=== PATIENT | female | born 1995 | race Caucasian/White ===

== ENCOUNTER 2025-05-11 02:20 | Emergency (ER) | payer BC, SELFPAY ==
[2025-05-11 02:24] VITALS: BP 123/78; BMI 19.5
[2025-05-11 02:27] VITALS: BP 123/78
[2025-05-11] MEDS: ZOFRAN 4 MG IV (02:39)
[2025-05-11] MEDS: NSS 1000 IV (02:40)
[2025-05-11 02:50] LABS: Hematocrit 38.0 % (37.0-47.0); Hemoglobin 13.8 g/dL (12.0-16.0); Mean Corp Hgb Conc. 36.3 g/dL (33.0-37.0); Mean Corpuscular Volume 93.8 fL (81.0-99.0); Nucleated Red Blood Cells % 0 %; Platelet Count 210 10^3/uL (130-400); Red Cell Dist. Width 10.9 % (11.5-14.5)
[2025-05-11 02:59] LABS: HCG, Serum Qualitative Screen Negative
[2025-05-11 03:02] VITALS: BP 97/69
[2025-05-11 03:08] LABS: Blood Urea Nitrogen 12 mg/dl (7-17); Calcium 9.4 mg/dl (8.4-10.2); Carbon Dioxide 21 mmol/L (22-30); Chloride 107 mmol/L (98-107); Estimated Creatinine Clearance > 125 ml/min; Glucose 103 mg/dl (70-99); Potassium 3.7 mmol/L (3.5-5.1); Sodium 140 mmol/L (135-145); eGFR > 60.00
[2025-05-11 04:31] VITALS: BP 106/57
--- NOTE | 2025-05-11 05:13 | ED.GENMED ---
History of Present Illness
General
Chief Complaint: Alcohol Problem
Source: patient
Time Seen by Provider: 05/11/25 02:43
Nursing documentation reviewed up to this point in time: agreed with
History of Present Illness
History of Present Illness:
Note:
CHIEF COMPLAINT(S)
Nausea and vomiting
HISTORY OF PRESENT ILLNESS
The patient is a 29-year-old female who was reportedly fine until she went to the bathroom and suddenly experienced uncontrollable vomiting. This occurred while she was out in [place] with friends. The friends report that she did not consume a
large quantity of alcohol as far as they are aware. Following the vomiting, she became noticeably unsteady on her feet and appeared 'wobbly.' There is concern for possible alcohol intoxication. The patient was brought here due to the risk of
vomiting and potential for choking. Upon inquiry, it was noted that there is a plan to monitor her alcohol level. If the level is under 200, she can be considered for discharge. She denies being diabetic or having any significant medical problems.
The patient was provided with medication for nausea recently during the visit.
ADDITIONAL HISTORY OBTAINED FROM SOURCES OTHER THAN THE PATIENT
Information was provided by friends accompanying the patient. They reported the sequence of events, including her sudden onset of vomiting and subsequent unsteadiness.
PHYSICAL EXAM
General: Alert, no acute distress.
Skin: Warm, dry.
Head: Normocephalic, atraumatic.
Neck: Supple, trachea midline.
Eye Ears, nose, mouth and throat: Oral mucosa moist.
Cardiovascular: Normal peripheral perfusion, No edema.
Respiratory: Respirations are non-labored.
Gastrointestinal: Abdomen nondistended
Back: Normal range of motion, Normal alignment.
Musculoskeletal: Normal range of motion, normal strength.
Neurological: Alert and oriented to person, place, time, and situation, No focal neurological deficit observed.
Psychiatric: Cooperative, appropriate mood & affect.
PLAN
1. Monitor the patients alcohol level and observe her until she is coherent and able to handle herself.
2. Consider discharge once her alcohol level is under 200.
3. Continue to provide symptomatic treatment for nausea as needed.
DIFFERENTIAL DIAGNOSIS
The Differential Diagnosis includes, in no particular order and is not limited to:
1. Acute alcohol intoxication
2. Gastroenteritis
3. Vestibular Neuritis
4. Acute Gastroenteritis
5. Food poisoning
6. Viral infection
7. Anxiety-induced nausea
8. Dehydration
9. Reaction to medication or substance
10. Intracranial event such as a migraine or less likely a stroke.
Disposition:
SUMMARY OF ENCOUNTER
The patient, a 29-year-old female, was brought to the emergency department for evaluation following an episode of nausea and vomiting with a possible concern for acute alcohol intoxication. Initial presentation included symptoms of vomiting and
unsteadiness. Alcohol level monitoring was initiated to assess her condition. The patient received symptomatic treatment for nausea and has since sobered up. Currently, she is alert, maintaining appropriately, and handling herself without difficulty.
DISPOSITION
Discharge
ASSESSMENT
The patients symptoms and history suggest acute alcohol intoxication, which has now resolved as she is coherent and stable.
PLAN
1. Discharge the patient home in the care of a responsible friend.
2. Advise the patient to rest and avoid alcohol consumption.
3. Recommend the patient seeks medical attention if symptoms reoccur or worsen.
MEDICATION RECONCILIATION
Ondansetron was provided for nausea treatment during the visit.
MEDICAL DECISION MAKING
-Complexity of Data Reviewed:
Acute alcohol intoxication, Differential Diagnosis:
1. Acute alcohol intoxication
2. Gastroenteritis
3. Vestibular Neuritis
4. Acute Gastroenteritis
5. Food poisoning
6. Viral infection
7. Anxiety-induced nausea
8. Dehydration
9. Reaction to medication or substance
10. Intracranial event such as a migraine or less likely a stroke.
-Data:
Category 2: Clinical information was obtained from an independent historian, specifically the patients friends who reported the sequence of events.
-Risk: Consideration of Admission/Observation: Escalation of care including admission/observation was considered given the complexity and risk of the patients presenting complaint. However, ultimately the patient is deemed safe for outpatient
management with close follow-up. Reasoning: Work-up reassuring, does not reveal any acute life/organ-threatening processes, patients symptoms well controlled upon reevaluation, reexamination is reassuring, vitals are stable, patient agreeable with
discharge, reliable for follow-up.
DIAGNOSIS
Acute alcohol intoxication (ICD-10: F10.129)
Past History
Past History
ED Past Medical History: Psychiatric (Bipolar disorder) and Other (Pyelonephritis); Negative Asthma, HTN, Hypercholesterolemia or NIDDM
ED Past Surgical History: None
Social History
Tobacco: Non-smoker
Alcohol: None
Drug: None
Personal: Single
Living: with family
Employment: Student
Family History
Family History: Other (Noncontributory)
Phy Exam
Physical Exam
Physical Exam:
.
Scores
Withdrawal Assessment of Alcohol
Withdrawal Assessment Completed?: Not applicable
Course
Orders/Labs/Results
Orders:
Orders
05/11/25 02:36
Ondansetron Injectable [Zofran] 4 mg .ROUTE .STK-MED ONE
05/11/25 02:38
Ondansetron Injectable [Zofran] 4 mg IV NOW STA
05/11/25 02:39
0.9% Sodium Chloride 1000 ml [Nss] 1,000 ml IV BOLUS
05/11/25 02:41
Test Result ONCE
05/11/25 02:42
Alcohol Urgent
Basic Metabolic Panel Urgent
Complete Blood Count/With Diff Urgent
HCG, Serum Qualitative Screen Urgent
Abnormal Lab Results
05/11/25
02:42
RBC 4.05 L 10^6/uL
(4.20-5.40)
MCH 34.1 H pg
(27.0-31.0)
RDW 10.9 L %
(11.5-14.5)
Absolute Lymphs (auto) 3.5 H 10^3/uL
(1.2-3.4)
Carbon Dioxide 21 L mmol/L
(22-30)
Creatinine 0.5 L mg/dL
(0.6-1.0)
Glucose 103 H mg/dl
(70-99)
05/11/25 02:42
05/11/25 02:42
Vital Signs
Initial and Last Documented VS:
Initial Vital Signs
Temp Pulse Resp BP Pulse Ox
97.6 F 74 12 123/78 95
05/11/25 02:24 05/11/25 02:24 05/11/25 02:24 05/11/25 02:24 05/11/25 02:24
Last Documented Vital Signs
Temp Pulse Resp BP Pulse Ox
97.6 F 84 24 106/57 98
05/11/25 02:24 05/11/25 04:45 05/11/25 04:45 05/11/25 04:31 05/11/25 05:14
*Pulse Oximetry
SaO2: 98
Oxygen Mode of Delivery: Room air
Patient hypoxic: no
*Critical Care Note
Total Time (30-74mins, 75-104mins- exclusive of procedures): Not Applicable
ED Attending Note
-
Portions of this chart may have been created with voice recognition software.� Occasional wrong word or��sound alike� substitutions may have occurred due to the inherent limitations of voice recognition software.
Discharge Plan
Departure
Patient Disposition: Home (Routine Discharge)
Date of Disposition: 05/11/25
Time of Disposition: 05:13
Patient with high blood pressure during this ER visit?: Yes
Condition: Good
Discharge Problem:
Acute alcohol intoxication
Instructions: Alcohol Use Disorder (DC), BLOOD PRESSURE
Prescriptions:
No Action
No Current Medications
0
Referrals:
Bryan Bingham DO [Family Provider, Family Practice]
Activity Restrictions/Additional Instructions:
Thank You for choosing [facility].
It was a pleasure meeting you and taking part in your care. We hope for your continued healing and wellness.
Please read discharge instructions in their entirety. However, they are for general education and may not describe your exact diagnosis at discharge. Information on your ER visit and medical conditions were discussed with you along with appropriate
follow up information...
If indicated, please take your medications as instructed and indicated on discharge paperwork.
Please schedule a follow up appointment as directed. Call to schedule an appointment
Please return to the emergency department with ANY change in, persisting, or worsening of symptoms. If any of your symptoms do not improve, or persist, or become more severe within 6-12 hours, please return to the emergency department for further
care.
Please return to the emergency department if you develop a headache, neck pain/stiffness, fever greater than 100.4F, chest pain, shortness of breath, persistent nausea, vomiting, slurred speech, difficulty walking, numbness/tingling, weakness, signs
of infection or any other symptoms that are worrisome to you.
If you have any questions or concerns please do not hesitate to call the Hospital at .
Interventions
Interventions:
*Risk Screen - Suicide Last Done: 05/11/25 02:24
*General Assessment Last Done: 05/11/25 02:24
*Neglect/Abuse Screening Last Done: 05/11/25 02:24
*ED- Fall Risk Assessment Last Done: 05/11/25 02:24
*ED COVID-19 Vaccine History Last Done: 05/11/25 02:24
*ED Influenza Vaccine History Last Done: 05/11/25 05:02
*Nursing Disposition Last Done: 05/11/25 05:30
ED- Neurological Assessment Last Done: 05/11/25 02:45
ED-Psychological Assessment Last Done: 05/11/25 02:45
Discharge Date and Time
Discharge Date/Time: 05/11/25 05:32
Print Language: [id number]
== END 2025-05-11 05:32 | disposition home or self-care (01) ==
LOC: EMR 02:20
PROVIDERS: EMERGENCY PHYSICIAN Student in an Organized Health Care Education/Training Program; FAMILY PHYSICIAN Family Medicine
DX: F10.129 Alcohol abuse with intoxication, unspecified (principal); R03.0 Elevated blood-pressure reading, without diagnosis of hypertension; F31.9 Bipolar disorder, unspecified
CPT/HCPCS: 99284; 96374; 80048; 82077; 84703; 85025